=== PATIENT | male | born 1985 | race Caucasian/White ===

== ENCOUNTER 2017-09-11 19:11 | Inpatient (IN) | payer OTHER ==
[~2017-09-11] VITALS: Ht 165.1 cm; Wt 72.5 kg
[2017-09-11 20:54] LABS: HEMATOCRIT 37.2 % (38.0-50.0); HEMOGLOBIN 12.5 G/DL (12.5-16.6); MCH 29.2 PG (29.0-34.0); MCHC 33.6 G/DL (30.0-36.0); MCV 86.9 FL (86-99); PLATELET COUNT 308 K/uL (156-360); RBC DIS.WIDTH-SD 47.7 % (39-53); RED BLOOD COUNT 4.28 M/uL (4.00-5.50); WHITE BLOOD COUNT 9.8 K/uL (4.1-10.2)
[2017-09-11 21:03] LABS: CHLORIDE 108 mEq/L (99-109); POTASSIUM 3.2 mEq/L (3.7-5.4); SODIUM 138 mEq/L (136-147)
[2017-09-11 21:04] LABS: GLUCOSE 174 mg/dL (70-99)
[2017-09-11 21:08] LABS: CREATININE 0.8 mg/dL (0.6-1.3); GFR ESTIMATE (CALCULATED) > 59 mL/min/ (58.99-99999); SERUM ETHYL ALCOHOL < 10 mg/dL
[2017-09-11 21:09] LABS: UREA NITROGEN (BUN) 12 mg/dL (9-23)
[2017-09-11 21:11] LABS: ACETAMINOPHEN (TYLENOL) < 10 mcg/mL (10-30)
[2017-09-12 00:53] VITALS: BP 132/90
[2017-09-12 03:21] LABS: BENZODIAZEPINES, URINE SCREEN Negative (200 ng/mL)
[2017-09-12 07:49] VITALS: BP 120/75
[2017-09-12 15:27] VITALS: BP 109/66
[2017-09-12 21:33] VITALS: BP 101/63
[2017-09-13 08:35] VITALS: BP 116/69
[2017-09-13 15:35] VITALS: BP 118/59
[2017-09-13 20:39] VITALS: BP 115/58
[2017-09-14 08:28] VITALS: BP 95/61
[2017-09-14 17:00] VITALS: BP 103/59
[2017-09-15 07:45] VITALS: BP 92/55
[2017-09-15 10:00] VITALS: BP 109/72
[2017-09-15] MEDS ORDERED: DESYREL100 MG PO (14:27)
[2017-09-15] MEDS ORDERED: GABAPENTIN300 MG PO (14:27)
[2017-09-15 15:49] VITALS: BP 104/56
== END 2017-09-15 16:23 | disposition other institution (70) | DRG 897 ==
LOC: EME 19:11 → EDOF 21:51 → 1WEST 21:51 → ENRESERV 09-12 00:46 → 1WEST 09-12 00:46
PROVIDERS: Emergency Medicine Emergency Medical Services
DX: F11.23 Opioid dependence with withdrawal (principal); R45.851 Suicidal ideations; F43.23 Adjustment disorder with mixed anxiety and depressed mood; F17.210 Nicotine dependence, cigarettes, uncomplicated; F43.25 Adjustment disorder with mixed disturbance of emotions and conduct; G47.00 Insomnia, unspecified; Z56.0 Unemployment, unspecified; Z59.0 Homelessness
CPT/HCPCS: 80048; 80306 90; 85027; 90839; 99281; 99284; G0480; J0572; Q0177